=== PATIENT | male | born 1995 | race Caucasian/White ===

== ENCOUNTER 2016-08-21 13:55 | Emergency (ER) | payer MEDICAID, OTHER ==
[~2016-08-21] VITALS: Ht 170.2 cm; Wt 59.1 kg
[2016-08-21] MEDS ORDERED: SODIUM CHLORIDE 0.9% 1,000ML IVBOLUS ONE (14:00)
[2016-08-21] MEDS ORDERED: ONDANSETRON 2MG/ML, 2ML IVPush ONE (14:00)
[2016-08-21] MEDS ORDERED: FAMOTIDINE 20 MG/2 ML IVP ONE (14:00)
[2016-08-21] MEDS ORDERED: SODIUM CHLORIDE FLUSH 10ML SYR IVF ONE (14:00)
[2016-08-21] MEDS ORDERED: anxiety med PO (14:08)
[2016-08-21 14:35] LABS: ASPARTATE AMINO TRANSFERASE 15 U/L (15-37); BLOOD UREA NITROGEN 11 mg/dL (7-18)
[2016-08-21] MEDS ORDERED: FAMOTIDINE 20 MG/2 ML ONE (14:54)
[2016-08-21] MEDS ORDERED: ONDANSETRON 2MG/ML, 2ML ONE (14:54)
[2016-08-21] MEDS ORDERED: MORPHINE SULFATE 4 MG/ML, 1ML IVPush PRN (16:00)
[2016-08-21] MEDS ORDERED: MORPHINE SULFATE 4 MG/ML, 1ML ONE (16:07)
[2016-08-21] MEDS ORDERED: OMNIPAQUE 350 MG/ML, 100ML BOTTLE ONE (16:08)
[2016-08-21 17:24] VITALS: BP 97/59
== END 2016-08-21 17:27 | disposition home or self-care (01) ==
LOC: ED 16:50
DX: R11.2 Nausea with vomiting, unspecified (principal); R19.7 Diarrhea, unspecified
CPT/HCPCS: 36415; 74020; 74177; 80053; 83690; 85025; 96361; 96374; 96375; 99285; J2405; J7030; Q9967; S0028

== ENCOUNTER 2016-08-29 01:59 | Emergency (ER) | payer MEDICAID ==
[~2016-08-29] VITALS: Ht 162.6 cm; Wt 58.8 kg
[~2016-08-29 01:59] MED LIST: anxiety med PO
[2016-08-29] MEDS ORDERED: KETOROLAC 30 MG/1 ML IM ONE (03:00)
[2016-08-29 03:16] VITALS: BP 96/54
== END 2016-08-29 03:19 | disposition home or self-care (01) ==
LOC: ED 02:49
DX: R07.89 Other chest pain (principal); F41.1 Generalized anxiety disorder
CPT/HCPCS: 71010; 93005; 99284

== ENCOUNTER 2016-09-05 13:28 | Emergency (ER) | payer MEDICAID ==
[~2016-09-05] VITALS: Ht 170.2 cm; Wt 64.3 kg
[2016-09-05] MEDS ORDERED: ONDANSETRON 2MG/ML, 2ML ONE (14:13)
[2016-09-05] MEDS ORDERED: KETOROLAC 30 MG/1 ML ONE (14:13)
[2016-09-05] MEDS ORDERED: FAMOTIDINE 20 MG/2 ML ONE (14:13)
[2016-09-05] MEDS ORDERED: KETOROLAC 30 MG/1 ML IVPush ONE (14:30)
[2016-09-05] MEDS ORDERED: SODIUM CHLORIDE 0.9% 1,000ML IVBOLUS ONE (14:30)
[2016-09-05] MEDS ORDERED: ONDANSETRON 2MG/ML, 2ML IVPush ONE (14:30)
[2016-09-05] MEDS ORDERED: SODIUM CHLORIDE FLUSH 10ML SYR IVF ONE (14:30)
[2016-09-05] MEDS ORDERED: FAMOTIDINE 20 MG/2 ML IVP ONE (14:30)
[2016-09-05 14:49] LABS: PATH.CAST-FLAG NOT PRESENT; SPERM-FLAG NOT PRESENT; SRC-FLAG NOT PRESENT; XTAL-FLAG NOT PRESENT; YLC-FLAG NOT PRESENT
[2016-09-05 14:55] LABS: ASPARTATE AMINO TRANSFERASE 18 U/L (15-37); BLOOD UREA NITROGEN 8 mg/dL (7-18)
[2016-09-05 15:58] VITALS: BP 101/66
== END 2016-09-05 15:59 | disposition home or self-care (01) ==
LOC: ED 15:50
DX: K29.00 Acute gastritis without bleeding (principal)
CPT/HCPCS: 36415; 80053; 81001; 83690; 85025; 96361; 96374; 96375; 99284; J1885; J2405; J7030; S0028

== ENCOUNTER 2016-09-07 11:34 | Inpatient (IN) | payer MEDICAID ==
[~2016-09-07] VITALS: Ht 170.2 cm; Wt 62.5 kg
[2016-09-07] MEDS ORDERED: SODIUM CHLORIDE 0.9% 1,000 ML IV ONE (11:53)
[2016-09-07] MEDS ORDERED: ONDANSETRON 2MG/ML, 2ML IVPush ONE (12:00)
[2016-09-07] MEDS ORDERED: ACETAMINOPHEN 500 MG TABLET PO ONE (12:00)
[2016-09-07] MEDS ORDERED: SODIUM CHLORIDE 0.9% 1,000ML IVBOLUS ONE ×2 (12:00→14:30)
[2016-09-07] MEDS ORDERED: SODIUM CHLORIDE FLUSH 10ML SYR IVF ONE (12:00)
[2016-09-07] MEDS ORDERED: ONDANSETRON 2MG/ML, 2ML ONE (12:08)
[2016-09-07] MEDS ORDERED: HYDROmorphone 1 MG/ML, 1ML ONE ×3 (12:09→18:14)
[2016-09-07] MEDS: HYDROmorphone 1 MG/ML, 1ML IVPush PRN ×2 (12:15→14:48)
[2016-09-07 12:27] LABS: BLOOD UREA NITROGEN 10 mg/dL (7-18)
[2016-09-07] MEDS ORDERED: ACETAMINOPHEN 325 MG TABLET ONE (12:27)
[2016-09-07] MEDS ORDERED: HYDROmorphone 1 MG/ML, 1ML IVPush PRN (15:00)
[2016-09-07 15:48] LABS: GLUCOSE, CSF 58 mg/dL (40-80)
[2016-09-07] MEDS ORDERED: BISACODYL 10 MG SUPP PR PRN (19:00)
[2016-09-07] MEDS ORDERED: LABETALOL 5MG/ML 40ML VIAL IVPush PRN (19:00)
[2016-09-07] MEDS ORDERED: DOCUSATE 100 MG CAPSULE PO PRN (19:00)
[2016-09-07] MEDS ORDERED: SODIUM CHLORIDE FLUSH 10ML SYR IVF PRN (19:00)
[2016-09-07] MEDS ORDERED: morphine SULFATE 10 MG/ML, 1ML IVPush PRN (19:00)
[2016-09-07] MEDS ORDERED: LORazepam 2 MG/ML, 1ML IVPush PRN (19:00)
[2016-09-07] MEDS ORDERED: POLYETHYLENE GLYCOL 17 GM PACKET PO PRN (19:00)
[2016-09-07] MEDS ORDERED: ENOXAPARIN 40 MG/0.4 ML ONE (20:49)
[2016-09-07] MEDS: SODIUM CHLORIDE 0.9% 1,000 ML IV SCH (20:58)
[2016-09-07] MEDS: ENOXAPARIN 40 MG/0.4 ML SQ SCH (20:59)
[2016-09-07] MEDS: ACETAMINOPHEN 325 MG TABLET PO PRN (23:38)
[2016-09-07 23:42] VITALS: BP 121/75
[2016-09-08 01:44] VITALS: BP 91/48
[2016-09-08] MEDS: SODIUM CHLORIDE 0.9% 1,000 ML IV SCH ×6 (01:44→21:58)
[2016-09-08 02:20] LABS: RAPID INFLUENZA A Negative (Negative); RAPID INFLUENZA B Negative (Negative)
[2016-09-08 06:31] LABS: ASPARTATE AMINO TRANSFERASE 15 U/L (15-37); BLOOD UREA NITROGEN 9 mg/dL (7-18)
[2016-09-08 08:50] VITALS: BP 104/63
[2016-09-08] MEDS: ACETAMINOPHEN 325 MG TABLET PO PRN (09:10)
[2016-09-08] MEDS: KETOROLAC 30 MG/1 ML IVPush PRN (09:10)
[2016-09-08 15:31] VITALS: BP 100/63
[2016-09-08 19:49] VITALS: BP 104/68
[2016-09-08] MEDS: ENOXAPARIN 40 MG/0.4 ML SQ SCH (19:56)
[2016-09-09] MEDS: ACETAMINOPHEN 325 MG TABLET PO PRN (02:01)
[2016-09-09] MEDS: SODIUM CHLORIDE 0.9% 1,000 ML IV SCH ×4 (02:42→23:06)
[2016-09-09 03:37] VITALS: BP 100/62
[2016-09-09 06:05] LABS: BLOOD UREA NITROGEN 8 mg/dL (7-18)
[2016-09-09 07:55] VITALS: BP 110/68
[2016-09-09] MEDS ORDERED: maalox/diphenh/lido/sucralfate 5 ML PO PRN (11:00)
[2016-09-09] MEDS: PHENOL THROAT SPRAY BOTTLE MM PRN (12:23)
[2016-09-09] MEDS: PENICILLIN VK 500MG TABLET PO SCH ×2 (12:23→23:04)
[2016-09-09 13:56] VITALS: BP 112/70
[2016-09-09] MEDS: ONDANSETRON 2MG/ML, 2ML IVPush PRN ×2 (14:38→20:30)
[2016-09-09] MEDS: KETOROLAC 30 MG/1 ML IVPush PRN (14:39)
[2016-09-09] MEDS: MORPHINE SULFATE 4 MG/ML, 1ML IVPush PRN ×2 (15:28→20:30)
[2016-09-09] MEDS: HYDROcodone/APAP 5/325 TABLET PO PRN ×2 (17:52→23:04)
[2016-09-09 20:04] VITALS: BP 103/50
[2016-09-09] MEDS: ENOXAPARIN 40 MG/0.4 ML SQ SCH (23:04)
[2016-09-10] MEDS: ONDANSETRON 2MG/ML, 2ML IVPush PRN ×3 (02:55→17:08)
[2016-09-10] MEDS: KETOROLAC 30 MG/1 ML IVPush PRN ×3 (02:55→17:03)
[2016-09-10 03:05] VITALS: BP 101/51
[2016-09-10 05:01] LABS: BLOOD UREA NITROGEN 7 mg/dL (7-18)
[2016-09-10 06:56] VITALS: BP 168/72
[2016-09-10] MEDS: MORPHINE SULFATE 4 MG/ML, 1ML IVPush PRN ×2 (09:06→17:03)
[2016-09-10] MEDS: PENICILLIN VK 500MG TABLET PO SCH (09:06)
[2016-09-10] MEDS: DEXAMETHASONE 4 MG/ML, 1ML IVPush SCH ×3 (10:30→22:38)
[2016-09-10] MEDS ORDERED: PROCHLORPERAZINE 5 MG/ML, 2ML IVPush ONE (10:30)
[2016-09-10] MEDS ORDERED: DEXAMETHASONE 10 MG in SODIUM CHLORIDE 0.9% 50 ML IV ONE (10:30)
[2016-09-10] MEDS ORDERED: DEXAMETHASONE 4 MG/ML, 5ML IVPush ONE (10:30)
[2016-09-10] MEDS ORDERED: DIPHENHYDRAMINE 50 MG/ML, 1ML IVPush ONE (12:00)
[2016-09-10] MEDS: AMPICILLIN/SULBACTAM 3 GM in SODIUM CHLORIDE 0.9% 100 ML IV SCH ×2 (13:23→20:20)
[2016-09-10 14:46] VITALS: BP 94/62
[2016-09-10] MEDS: ENOXAPARIN 40 MG/0.4 ML SQ SCH (20:20)
[2016-09-10 21:05] VITALS: BP 116/77
[2016-09-10] MEDS: SODIUM CHLORIDE 0.9% 1,000 ML IV SCH (22:38)
[2016-09-11] MEDS: MORPHINE SULFATE 4 MG/ML, 1ML IVPush PRN (00:33)
[2016-09-11] MEDS: AMPICILLIN/SULBACTAM 3 GM in SODIUM CHLORIDE 0.9% 100 ML IV SCH ×4 (01:38→20:02)
[2016-09-11 01:54] VITALS: BP 116/61
[2016-09-11] MEDS: DEXAMETHASONE 4 MG/ML, 1ML IVPush SCH ×4 (05:06→23:58)
[2016-09-11 07:23] VITALS: BP 97/59
[2016-09-11 12:41] VITALS: BP 103/56
[2016-09-11 18:52] VITALS: BP 105/60
[2016-09-11] MEDS: SODIUM CHLORIDE 0.9% 1,000 ML IV SCH (20:02)
[2016-09-11] MEDS: ENOXAPARIN 40 MG/0.4 ML SQ SCH (20:02)
[2016-09-12] MEDS: AMPICILLIN/SULBACTAM 3 GM in SODIUM CHLORIDE 0.9% 100 ML IV SCH ×2 (02:02→08:02)
[2016-09-12 04:00] VITALS: BP 105/60
[2016-09-12] MEDS: DEXAMETHASONE 4 MG/ML, 1ML IVPush SCH ×2 (04:42→10:30)
[2016-09-12 05:53] LABS: BLOOD UREA NITROGEN 11 mg/dL (7-18)
[2016-09-12] MEDS: SODIUM CHLORIDE 0.9% 1,000 ML IV SCH (06:05)
[2016-09-12 07:42] VITALS: BP 106/59
[2016-09-12] MEDS: PHENOL THROAT SPRAY BOTTLE MM PRN (08:02)
[2016-09-12] MEDS ORDERED: PHEN177S5 MM (09:40)
[2016-09-12] MEDS ORDERED: ACET325T14 PO (09:40)
[2016-09-12] MEDS ORDERED: AMOX1TAB64 PO (09:40)
[2016-09-12] MEDS ORDERED: METH4TAB2 PO (09:40)
== END 2016-09-12 11:49 | disposition home or self-care (01) | DRG 76 ==
LOC: ED 14:32 → EDIP 18:58 → 3NE 22:03
PROVIDERS: ADMIT Internal Medicine; ATTEND Internal Medicine
PROC: 009U3ZX Drainage of Spinal Canal, Percutaneous Approach, Diagnostic (ICD-10-PCS; principal; 2016-09-07)
DX: A87.9 Viral meningitis, unspecified (principal); J02.0 Streptococcal pharyngitis; F41.9 Anxiety disorder, unspecified; I95.9 Hypotension, unspecified; Z88.8 Allergy status to other drugs, medicaments and biological substances; Z87.891 Personal history of nicotine dependence
CPT/HCPCS: 36415; 62270; 70450; 71020; 80048; 80053; 81003; 82040; 82945; 83605; 84157; 84443; 85025; 86308; 87040; 87070; 87081; 87147; 87205; 87252; 87400; 87880; 89051; 96361; 96374; 96375; 96376; J0295; J1100; J1170; J1650; J1885; J2405; J0780; J1200; J2270; J7030

== ENCOUNTER 2016-10-18 21:55 | Emergency (ER) | payer MEDICAID, OTHER ==
[~2016-10-18] VITALS: Ht 170.2 cm; Wt 64.0 kg
[~2016-10-18 21:55] MED LIST changes: +ACET325T14 PO; +AMOX1TAB64 PO; +METH4TAB2 PO; +PHEN177S5 MM
[2016-10-18 21:58] VITALS: BP 102/53
[2016-10-18] MEDS ORDERED: LORazepam 1MG TABLET ONE (22:18)
[2016-10-18] MEDS ORDERED: LORazepam 1MG TABLET PO ONE (22:30)
== END 2016-10-18 22:45 | disposition home or self-care (01) ==
LOC: ED 22:18
DX: R07.89 Other chest pain (principal); F41.1 Generalized anxiety disorder; Z87.891 Personal history of nicotine dependence
CPT/HCPCS: 71020; 93005; 99284

== ENCOUNTER 2016-10-31 21:34 | Emergency (ER) | payer MEDICAID ==
[~2016-10-31] VITALS: Ht 170.2 cm; Wt 65.2 kg
[2016-10-31 21:35] VITALS: BP 114/74
[2016-10-31] MEDS ORDERED: LIDOCAINE 1%, 20ML ONE (21:55)
== END 2016-10-31 23:32 | disposition home or self-care (01) ==
LOC: ED 22:40
DX: L02.411 Cutaneous abscess of right axilla (principal); J02.8 Acute pharyngitis due to other specified organisms
CPT/HCPCS: 87081; 87147; 87880; 99284

== ENCOUNTER 2016-11-03 00:29 | Emergency (ER) | payer OTHER, MEDICAID ==
[~2016-11-03] VITALS: Ht 170.2 cm; Wt 67.4 kg
[2016-11-03 00:32] VITALS: BP 122/79
[2016-11-03] MEDS ORDERED: LIDOCAINE 2%, 20ML SQ ONE (01:30)
[2016-11-03] MEDS ORDERED: LIDOCAINE 1%, 20ML ONE (01:32)
[2016-11-03] MEDS ORDERED: IBUPROFEN 200 MG TABLET ONE (02:11)
[2016-11-03] MEDS ORDERED: IBUPROFEN 200 MG TABLET PO ONE (02:30)
== END 2016-11-03 02:28 | disposition home or self-care (01) ==
LOC: ED 02:00
DX: L02.411 Cutaneous abscess of right axilla (principal); I95.9 Hypotension, unspecified
CPT/HCPCS: 10060

== ENCOUNTER 2016-11-05 19:04 | Emergency (ER) | payer MEDICAID, OTHER ==
[~2016-11-05] VITALS: Ht 170.2 cm; Wt 66.6 kg
[2016-11-05 19:11] VITALS: BP 117/73
== END 2016-11-05 20:27 | disposition home or self-care (01) ==
LOC: ED 20:20
DX: L02.411 Cutaneous abscess of right axilla (principal); F41.9 Anxiety disorder, unspecified; F32.9 Major depressive disorder, single episode, unspecified; Z88.8 Allergy status to other drugs, medicaments and biological substances
CPT/HCPCS: 99283

== ENCOUNTER 2016-11-16 13:56 | Emergency (ER) | payer OTHER, MEDICAID ==
[~2016-11-16] VITALS: Ht 170.2 cm; Wt 63.0 kg
[2016-11-16 14:03] VITALS: BP 118/67
== END 2016-11-16 15:05 | disposition home or self-care (01) ==
LOC: ED 14:29
DX: R53.1 Weakness (principal); Z00.00 Encounter for general adult medical examination without abnormal findings; I95.9 Hypotension, unspecified
CPT/HCPCS: 36415; 80047; 99283

== ENCOUNTER 2018-02-26 14:52 | Emergency (ER) | payer OTHER, MEDICAID ==
[~2018-02-26] VITALS: Ht 172.7 cm; Wt 74.0 kg
[2018-02-26 14:58] VITALS: BP 101/64
--- NOTE | 2018-02-26 15:50 | NUR ---
pt resting in bed. friend at side. urinal provided and informed of the need for ua
[2018-02-26 15:54] LABS: BASOPHILS # (AUTO) 0.03 x10^3/uL (0-0.1); BASOPHILS % (AUTO) 1 % (0-1); EOSINOPHILS # (AUTO) 0.16 x10^3/uL (0-0.4); EOSINOPHILS % (AUTO) 3 % (1-7); LYMPHOCYTES # (AUTO) 1.55 x10^3/uL (1-3.4); LYMPHOCYTES % (AUTO) 27 % (22-44); MD NO; MEAN CORPUSCULAR HEMOGLOBIN 29.1 pg (27.5-34.5); MEAN CORPUSCULAR HGB CONC 33.6 g/dL (33.2-36.2); MEAN CORPUSCULAR VOLUME 86.4 fL (81-97); MEAN PLATELET VOLUME 8.9 fL (7.4-10.4); MONOCYTES # (AUTO) 0.52 x10^3/uL (0.2-0.8); MONOCYTES % (AUTO) 9 % (2-9); NEUTROPHILS # (AUTO) 3.49 x10^3/uL (1.8-6.8); NEUTROPHILS % (AUTO) 61 % (42-75); PLATELET COUNT 204 x10^3/uL (130-400); RED BLOOD COUNT 5.28 x10^6/uL (4.38-5.82); RED CELL DISTRIBUTION WIDTH 13.6 % (9.4-14.8)
[2018-02-26] MEDS ORDERED: KETOROLAC 30 MG/1 ML ONE (15:54)
[2018-02-26] MEDS ORDERED: ONDANSETRON ODT 4 MG ONE (15:54)
[2018-02-26] MEDS ORDERED: KETOROLAC 30 MG/1 ML IM ONE (16:00)
[2018-02-26] MEDS ORDERED: ONDANSETRON ODT 4 MG PO ONE (16:00)
[2018-02-26 16:07] LABS: ALANINE AMINOTRANSFERASE 21 U/L (12-78); ALBUMIN 3.6 g/dL (3.4-5.0); ANION GAP 3 mmol/L (5-15); CALCIUM 8.5 mg/dL (8.5-10.1); CHLORIDE 112 mmol/L (98-107); CREATININE 0.94 mg/dL (0.7-1.3)
[2018-02-26 16:09] LABS: ALKALINE PHOSPHATASE 101 U/L (45-117); BILIRUBIN,TOTAL 0.4 mg/dL (0.2-1.0); TOTAL PROTEIN 6.8 g/dL (6.4-8.2)
[2018-02-26] MEDS ORDERED: DEXAMETHASONE 4 MG TABLET ONE (16:59)
[2018-02-26] MEDS ORDERED: DEXAMETHASONE 4 MG TABLET PO ONE (17:00)
[2018-02-26 17:07] LABS: MICROSCOPIC NOT IND
[2018-02-26 17:09] LABS: CULTURE INDICATED? NO
--- NOTE | 2018-02-26 17:29 | NUR ---
SPOKE WITH MICRO JUST RECIEVED MONO SCREEN NOW. AWAITING RESULTS AT THIS TIME
== END 2018-02-26 17:59 | disposition home or self-care (01) ==
LOC: ED 16:59
DX: J02.8 Acute pharyngitis due to other specified organisms (principal); B97.89 Other viral agents as the cause of diseases classified elsewhere; F41.1 Generalized anxiety disorder; F32.9 Major depressive disorder, single episode, unspecified
CPT/HCPCS: 36415; 80053; 81003; 83690; 85025; 86308; 87081; 87880; 96372; 99283; J1885; Q0162

== ENCOUNTER 2018-06-09 04:41 | Emergency (ER) | payer OTHER, MEDICAID ==
[~2018-06-09] VITALS: Ht 172.7 cm; Wt 72.4 kg
[2018-06-09] MEDS ORDERED: FAMOTIDINE 20 MG/2 ML IVP ONE (05:00)
[2018-06-09] MEDS ORDERED: MORPHINE SULFATE 4 MG/ML, 1ML IVPush PRN (05:00)
[2018-06-09] MEDS ORDERED: MAALOX/HYOSCYAMINE/LIDOCAINE 45 ML BTL PO ONE (05:00)
[2018-06-09] MEDS ORDERED: SODIUM CHLORIDE 0.9% 1,000ML IVBOLUS ONE (05:00)
[2018-06-09] MEDS ORDERED: MAALOX/HYOSCYAMINE/LIDOCAINE 45 ML BTL ONE (05:14)
[2018-06-09] MEDS ORDERED: MORPHINE SULFATE 4 MG/ML, 1ML ONE (05:14)
[2018-06-09] MEDS ORDERED: FAMOTIDINE 20 MG/2 ML ONE (05:14)
--- NOTE | 2018-06-09 05:16 | NUR ---
PT TAKEN TO CT VIA [facility].
[2018-06-09 05:41] LABS: BASOPHILS # (AUTO) 0.02 x10^3/uL (0-0.1); BASOPHILS % (AUTO) 0 % (0-1); EOSINOPHILS # (AUTO) 0.06 x10^3/uL (0-0.4); EOSINOPHILS % (AUTO) 1 % (1-7); LYMPHOCYTES # (AUTO) 0.62 x10^3/uL (1-3.4); LYMPHOCYTES % (AUTO) 7 % (22-44); MD NO; MEAN CORPUSCULAR HEMOGLOBIN 29.6 pg (27.5-34.5); MEAN CORPUSCULAR HGB CONC 34.7 g/dL (33.2-36.2); MEAN CORPUSCULAR VOLUME 85.1 fL (81-97); MEAN PLATELET VOLUME 8.9 fL (7.4-10.4); MONOCYTES # (AUTO) 0.17 x10^3/uL (0.2-0.8); MONOCYTES % (AUTO) 2 % (2-9); NEUTROPHILS # (AUTO) 7.98 x10^3/uL (1.8-6.8); NEUTROPHILS % (AUTO) 90 % (42-75); PLATELET COUNT 202 x10^3/uL (130-400); RED BLOOD COUNT 5.73 x10^6/uL (4.38-5.82); RED CELL DISTRIBUTION WIDTH 13.8 % (9.4-14.8)
--- NOTE | 2018-06-09 05:47 | NUR ---
PT IN [facility]. VSS AT THIS TIME. PT MEDICATED PER MAR. FRIEND AT BS. PT EDUCATED ON ER PROCESS AND POC AND VERBALIZES UNDERSTANDING. CALL LIGHT IS WITHIN REACH.
[2018-06-09 05:53] LABS: ALANINE AMINOTRANSFERASE 22 U/L (12-78); ALBUMIN 4.1 g/dL (3.4-5.0); ANION GAP 8 mmol/L (5-15); CALCIUM 8.7 mg/dL (8.5-10.1); CHLORIDE 110 mmol/L (98-107); CREATININE 0.97 mg/dL (0.7-1.3)
[2018-06-09 05:57] LABS: ALKALINE PHOSPHATASE 91 U/L (45-117); BILIRUBIN,TOTAL 1.1 mg/dL (0.2-1.0)
--- NOTE | 2018-06-09 06:50 | NUR ---
BS REPORT OF PT GIVEN TO CASTRO HOLDER. ALL QUESTIONS ANSWERED.
--- NOTE | 2018-06-09 06:53 | NUR ---
RECEIVED BEDSIDE REPORT FROM CASTRO BUTLER.
--- NOTE | 2018-06-09 07:00 | NUR ---
.PT RESTING ON [employer] PLAYING ON CELL PHONE. NO ACUTE DISTRESS NOTED. FRIEND BEDSIDE. AWAITING RESULTS.
--- NOTE | 2018-06-09 07:34 | NUR ---
PT EDUCATED REGARDING POC AND NPO. PT VERBALIZED UNDERSTANDING. PT LAYING ON [employer] PLAYING GAMES ON CELL PHONE. BROTHER LEFT. PT AWARE TO CALL BROTHER. NO ACUTE DISTRESS NOTED. NO NEEDS REQUESTED AT THIS TIME.
--- NOTE | 2018-06-09 07:50 | NUR ---
SPOKE WITH LATASHA AT [facility]. SHE IS VERIFING THAT PT HAS CURRENT [facility].
--- NOTE | 2018-06-09 07:57 | NUR ---
SPOKE WITH LATASHA AT [facility]. PT DOES HAVE [facility]. LATASHA NOW CHECKING FOR BEDS
--- NOTE | 2018-06-09 08:27 | NUR ---
pt updated on plan to transfer, vss, cont to report abd pain
--- NOTE | 2018-06-09 08:55 | NUR ---
REPORT CALLED TO CASTRO MARIEE AT [facility]. ALL QUESTIONS ANSWERED.
[2018-06-09 09:00] VITALS: BP 107/63
--- NOTE | 2018-06-09 09:00 | NUR ---
PT LAYING ON [employer]. PT WAS ASKED TO CALL HIS BROTHER.
--- NOTE | 2018-06-09 10:11 | NUR ---
[facility] PT TRAN[facility]ORTED VIA [facility]. PT LEFT WITH ALL PERSONAL BELONGINGS. AXEL HAS PT'S CELL PHONE.
== END 2018-06-09 10:14 | disposition short-term general hospital (02) ==
LOC: ED 05:53
DX: K52.9 Noninfective gastroenteritis and colitis, unspecified (principal); K56.0 Paralytic ileus
CPT/HCPCS: 36415; 74021; 74176; 80053; 83690; 85025; 96361; 96374; 96375; 99285; J3490; J7030

== ENCOUNTER 2018-09-01 09:21 | Emergency (ER) | payer OTHER, MEDICAID ==
[~2018-09-01] VITALS: Ht 170.2 cm; Wt 72.0 kg
--- NOTE | 2018-09-01 09:32 | NUR ---
PT TO ROOM AT THIS TIME
--- NOTE | 2018-09-01 09:35 | NUR ---
23 Y/O MALE PRESENTS TO ED WITH C/O "ABOUT TWO DAYS AGO I HAD A SORE THROAT. I THOUGHT TONISLITIS. IT GOT BETTER. THEN LAST NIGHT I GOT REALLY NAUSEOUS AND SICK FEELING. IT GOT WORSE THIS MORNING. I FEEL TIRED AND REALLY NAUSEOUS. I HAVE A MASSIVE SANCHEZ THAT DOESNT GO AWAY." NO C/O D, TRAUMA, SYNCOPE, CP, SOB. EDMD BEDSIDE. GIRLFRIEND BEDSIDE. PT PLACED ON CONT PULSE OX,NIBP.
--- NOTE | 2018-09-01 09:55 | NUR ---
PIV ESTABLISHED. PT TOLERATED WITH NO COMPLICATIONS. BLOOD OBTAINED. GIRLFRIEND BEDSIDE.
[2018-09-01] MEDS ORDERED: DEXAMETHASONE 4 MG TABLET ONE (09:57)
[2018-09-01] MEDS ORDERED: KETOROLAC 30 MG/1 ML ONE (09:58)
[2018-09-01] MEDS ORDERED: DEXAMETHASONE 4 MG TABLET PO ONE (10:00)
[2018-09-01] MEDS ORDERED: KETOROLAC 30 MG/1 ML IVPush ONE (10:00)
[2018-09-01 10:09] LABS: MEAN CORPUSCULAR HEMOGLOBIN 29.7 pg (27.5-34.5); MEAN CORPUSCULAR HGB CONC 33.3 g/dL (33.2-36.2); MEAN CORPUSCULAR VOLUME 89.2 fL (81-97); MEAN PLATELET VOLUME 9.3 fL (7.4-10.4); PLATELET COUNT 156 x10^3/uL (130-400); RED BLOOD COUNT 4.96 x10^6/uL (4.38-5.82); RED CELL DISTRIBUTION WIDTH 13.8 % (9.4-14.8)
--- NOTE | 2018-09-01 10:11 | NUR ---
MEDICATIONS ADMINISTERED PER EMAR. PT HAD NO DIFFICULTIES WITH SWALLOWING PO MEDICATIONS.
[2018-09-01 10:14] LABS: ALBUMIN 3.6 g/dL (3.4-5.0); ANION GAP 9 mmol/L (5-15); CHLORIDE 113 mmol/L (98-107); CREATININE 1.04 mg/dL (0.7-1.3)
[2018-09-01 10:26] LABS: MD YES
[2018-09-01 10:28] LABS: BAND#(MANUAL) 2.02 x10^3/uL; BANDS%(MANUAL) 16 % (0-7); LYMPH#(MANUAL) 1.64 x10^3/uL (1-3.4); LYMPHS% (MANUAL) 13 % (22-44); MONOS#(MANUAL) 0.88 x10^3/uL (0.3-2.7); MONOS% (MANUAL) 7 % (2-9); SEG#(MANUAL) 8.06 x10^3/uL (1.8-6.8); SEGS% (MANUAL) 64 % (42-75)
[2018-09-01 10:29] LABS: <PLATELET ESTIMATE> ADEQUATE; <PLT MORPHOLOGY> NORMAL PLT MORPH; ANISOCYTOSIS 1+
[2018-09-01] MEDS ORDERED: POTASSIUM CHLORIDE 20 MEQ TAB.ER.PRT ONE (10:58)
[2018-09-01] MEDS ORDERED: POTASSIUM CHLORIDE 20 MEQ TAB.ER.PRT PO ONE (11:00)
--- NOTE | 2018-09-01 11:01 | NUR ---
PT RESTING ON GURNEY. GF BEDSIDE NO NEEDS REQUESTED AT THIS TIME. MEDICATION ADMINISTERED PER EMAR. VSS
--- NOTE | 2018-09-01 11:02 | NUR ---
PT STATES HE DIDN'T SLEEP MUCH LAST NIGHT. PER GF, "HE ONLY SLEPT A FEW HOURS AT THIS MOST."
[2018-09-01] MEDS ORDERED: SODIUM CHLORIDE 0.9% 1,000ML IVBOLUS ONE (11:30)
--- NOTE | 2018-09-01 11:37 | NUR ---
PT STATES "MY THROAT FEELS BETTER AFTER THOSE MEDICATIONS. IT'S LIKE A 2 NOW."
[2018-09-01 12:11] VITALS: BP 93/42
== END 2018-09-01 12:13 | disposition home or self-care (01) ==
LOC: ED 09:54
DX: J02.0 Streptococcal pharyngitis (principal); E87.6 Hypokalemia; F17.200 Nicotine dependence, unspecified, uncomplicated; I95.9 Hypotension, unspecified; R42 Dizziness and giddiness
CPT/HCPCS: 36415; 71045; 80048; 82040; 85025; 86308; 87040; 87081; 87147; 87880; 96361; 96374; 99284; J1885; J7030

== ENCOUNTER 2018-09-11 15:28 | Emergency (ER) | payer OTHER, MEDICAID ==
[~2018-09-11] VITALS: Ht 172.7 cm; Wt 70.0 kg
[2018-09-11 15:30] VITALS: BP 102/68
[2018-09-11] MEDS ORDERED: DEXAMETHASONE 4 MG TABLET ONE (15:51)
[2018-09-11] MEDS ORDERED: DEXAMETHASONE 4 MG TABLET PO ONE (16:00)
== END 2018-09-11 16:45 | disposition home or self-care (01) ==
LOC: ED 15:45
DX: J02.0 Streptococcal pharyngitis (principal); F41.1 Generalized anxiety disorder; H92.02 Otalgia, left ear; F32.9 Major depressive disorder, single episode, unspecified; F17.200 Nicotine dependence, unspecified, uncomplicated
CPT/HCPCS: 99283

== ENCOUNTER 2019-01-12 00:07 | Emergency (ER) | payer MEDICAID, OTHER ==
[~2019-01-12] VITALS: Ht 170.2 cm; Wt 63.6 kg
[~2019-01-12 00:07] MED LIST changes: -PHEN177S5 MM; +[UNRECOGNIZED DRUG - CODE] MM
[2019-01-12] MEDS ORDERED: DIPHENHYDRAMINE 50 MG/ML, 1ML IVPush ONE (00:30)
[2019-01-12] MEDS ORDERED: METOCLOPRAMIDE 5 MG/ML, 2ML IVPush ONE (00:30)
[2019-01-12] MEDS ORDERED: SODIUM CHLORIDE FLUSH 10ML SYR IVF ONE (00:30)
[2019-01-12] MEDS ORDERED: SODIUM CHLORIDE 0.9% 1,000ML IVBOLUS ONE (00:30)
[2019-01-12] MEDS ORDERED: KETOROLAC 30 MG/1 ML IVPush ONE (00:30)
[2019-01-12] MEDS ORDERED: METOCLOPRAMIDE 5 MG/ML, 2ML ONE (00:33)
[2019-01-12] MEDS ORDERED: DIPHENHYDRAMINE 50 MG/ML, 1ML ONE (00:33)
[2019-01-12] MEDS ORDERED: KETOROLAC 30 MG/1 ML ONE (00:33)
--- NOTE | 2019-01-12 00:43 | NUR ---
Patient into room by HAKEEM for headache, and states coughing up blood. Mask on patient, coughing occasionally. Peripheral intravenous catheter (pIV) already placed en route. Patient resting on gurney with signficant other at bedside. Break RN started intravenous fluids (IVF) and administering medications for headache (see eMAR.) Patient attached to monitor, vital signs stable.
[2019-01-12 00:48] LABS: RAPID INFLUENZA A Negative (Negative); RAPID INFLUENZA B Negative (Negative)
--- NOTE | 2019-01-12 00:50 | NUR ---
RN heard patient yelling in pain. RN to bedside, patient yelling as if in excruciating pain over ekg stickers being removed.
[2019-01-12] MEDS ORDERED: DEXAMETHASONE 4 MG/ML, 1ML IVPush ONE (01:30)
[2019-01-12] MEDS ORDERED: DEXAMETHASONE 4 MG/ML, 1ML ONE (01:33)
[2019-01-12 01:48] VITALS: BP 113/64
== END 2019-01-12 01:52 | disposition home or self-care (01) ==
LOC: ED 01:20
DX: J06.9 Acute upper respiratory infection, unspecified (principal); J45.909 Unspecified asthma, uncomplicated; G43.909 Migraine, unspecified, not intractable, without status migrainosus; J02.8 Acute pharyngitis due to other specified organisms; F41.1 Generalized anxiety disorder; F32.9 Major depressive disorder, single episode, unspecified; F17.200 Nicotine dependence, unspecified, uncomplicated
CPT/HCPCS: 71046; 87400; 93005; 96374; 96375; 99284; J1100; J1200; J1885; J2765; J7030

== ENCOUNTER 2019-01-18 22:45 | Emergency (ER) | payer MEDICAID, OTHER ==
[~2019-01-18] VITALS: Ht 180.3 cm; Wt 76.8 kg
--- NOTE | 2019-01-18 22:54 | NUR ---
Pt presents to ed c/o bennett and lbp. States lbp feels like the last time he got spinal tapped and was dx w/ meningitis. States nuchal rigidity as well. Denies fevers at home. Pt states bennett in back of head and 6/10 pain. Gross neuro intact. Perrla. Pt denies any further medical hx. Monitoring applied. Vss. Call light within reach. Spouse at bedside.
[2019-01-18] MEDS ORDERED: IBUPROFEN 800 MG TABLET PO STA (23:43)
[2019-01-18] MEDS ORDERED: DIAZEPAM 5 MG/ML, 2ML IM STA (23:43)
[2019-01-19] MEDS ORDERED: DEXAMETHASONE 4 MG/ML, 5ML ONE
[2019-01-19] MEDS ORDERED: IBUPROFEN 800 MG TABLET ONE
[2019-01-19] MEDS ORDERED: SODIUM CHLORIDE FLUSH 10ML SYR IVF ONE
[2019-01-19] MEDS ORDERED: DIAZEPAM 5 MG/ML, 2ML ONE
[2019-01-19] MEDS ORDERED: DEXAMETHASONE 4 MG/ML, 1ML IVPush ONE
[2019-01-19] MEDS ORDERED: SODIUM CHLORIDE 0.9% 1,000ML IVBOLUS ONE
[2019-01-19 00:21] LABS: RAPID INFLUENZA A Negative (Negative); RAPID INFLUENZA B Negative (Negative)
[2019-01-19 00:36] LABS: BASOPHILS # (AUTO) 0.13 x10^3/uL (0-0.1); BASOPHILS % (AUTO) 1 % (0-1); EOSINOPHILS # (AUTO) 0.13 x10^3/uL (0-0.4); EOSINOPHILS % (AUTO) 1 % (1-7); LYMPHOCYTES # (AUTO) 1.46 x10^3/uL (1-3.4); LYMPHOCYTES % (AUTO) 11 % (22-44); MD NO; MEAN CORPUSCULAR HEMOGLOBIN 29.3 pg (27.5-34.5); MEAN CORPUSCULAR HGB CONC 33.3 g/dL (33.2-36.2); MEAN PLATELET VOLUME 8.7 fL (7.4-10.4); MONOCYTES # (AUTO) 0.58 x10^3/uL (0.2-0.8); MONOCYTES % (AUTO) 4 % (2-9); NEUTROPHILS # (AUTO) 11.01 x10^3/uL (1.8-6.8); NEUTROPHILS % (AUTO) 83 % (42-75); PLATELET COUNT 209 x10^3/uL (130-400); RED BLOOD COUNT 5.03 x10^6/uL (4.38-5.82); RED CELL DISTRIBUTION WIDTH 13.8 % (9.4-14.8)
[2019-01-19 00:46] LABS: ALBUMIN 3.6 g/dL (3.4-5.0); ANION GAP 4 mmol/L (5-15); CALCIUM 8.2 mg/dL (8.5-10.1); CHLORIDE 108 mmol/L (98-107); CREATININE 0.93 mg/dL (0.7-1.3)
[2019-01-19 01:40] VITALS: BP 107/63
== END 2019-01-19 02:09 | disposition home or self-care (01) ==
LOC: ED 23:44
DX: J20.8 Acute bronchitis due to other specified organisms (principal); J02.0 Streptococcal pharyngitis; B34.9 Viral infection, unspecified; F41.1 Generalized anxiety disorder; F32.9 Major depressive disorder, single episode, unspecified; G43.909 Migraine, unspecified, not intractable, without status migrainosus; F17.210 Nicotine dependence, cigarettes, uncomplicated
CPT/HCPCS: 36415; 71045; 80048; 82040; 85025; 86308; 87400; 87880; 93005; 96372; 96374; 99284; J1100; J3360; J7030

== ENCOUNTER 2019-02-08 09:16 | Emergency (ER) | payer OTHER ==
[~2019-02-08] VITALS: Ht 172.7 cm; Wt 68.2 kg
[2019-02-08] MEDS ORDERED: MORPHINE SULFATE 4 MG/ML, 1ML ONE ×2 (09:45→11:17)
[2019-02-08] MEDS ORDERED: ONDANSETRON 2MG/ML, 2ML ONE (09:45)
[2019-02-08] MEDS ORDERED: ACETAMINOPHEN 500 MG TABLET ONE (09:46)
[2019-02-08] MEDS ORDERED: ACETAMINOPHEN 500 MG TABLET PO ONE (10:00)
[2019-02-08] MEDS ORDERED: ONDANSETRON 2MG/ML, 2ML IVPush ONE (10:00)
[2019-02-08] MEDS ORDERED: SODIUM CHLORIDE 0.9% 1,000ML IVBOLUS ONE ×2 (10:00→12:30)
--- NOTE | 2019-02-08 10:00 | NUR ---
PT REPORT FROM CASTRO BRAUN. PT CARE TO BE ASSUMED.
[2019-02-08] MEDS: MORPHINE SULFATE 4 MG/ML, 1ML IVPush PRN ×2 (10:02→11:20)
--- NOTE | 2019-02-08 10:15 | NUR ---
LAB BS FOR ADDITIONAL LAB DRAW. RAINBOW DRAWN FROM IV SITE PER CASTRO BRAUN
[2019-02-08 10:19] LABS: BASOPHILS # (AUTO) 0.01 x10^3/uL (0-0.1); BASOPHILS % (AUTO) 0 % (0-1); EOSINOPHILS # (AUTO) 0.04 x10^3/uL (0-0.4); EOSINOPHILS % (AUTO) 1 % (1-7); LYMPHOCYTES # (AUTO) 0.49 x10^3/uL (1-3.4); LYMPHOCYTES % (AUTO) 9 % (22-44); MD NO; MEAN CORPUSCULAR HEMOGLOBIN 29.4 pg (27.5-34.5); MEAN CORPUSCULAR HGB CONC 33.4 g/dL (33.2-36.2); MEAN CORPUSCULAR VOLUME 87.9 fL (81-97); MEAN PLATELET VOLUME 9.1 fL (7.4-10.4); MONOCYTES # (AUTO) 0.36 x10^3/uL (0.2-0.8); MONOCYTES % (AUTO) 7 % (2-9); NEUTROPHILS # (AUTO) 4.33 x10^3/uL (1.8-6.8); NEUTROPHILS % (AUTO) 83 % (42-75); PLATELET COUNT 182 x10^3/uL (130-400); RED BLOOD COUNT 5.45 x10^6/uL (4.38-5.82); RED CELL DISTRIBUTION WIDTH 13.9 % (9.4-14.8)
[2019-02-08 10:32] LABS: RAPID INFLUENZA A Negative (Negative); RAPID INFLUENZA B Negative (Negative)
[2019-02-08 10:34] LABS: ALBUMIN 3.9 g/dL (3.4-5.0); ANION GAP 7 mmol/L (5-15); CALCIUM 8.8 mg/dL (8.5-10.1); CHLORIDE 108 mmol/L (98-107)
[2019-02-08 10:38] LABS: ALANINE AMINOTRANSFERASE 28 U/L (12-78); ALKALINE PHOSPHATASE 101 U/L (45-117); BILIRUBIN,TOTAL 0.6 mg/dL (0.2-1.0); CREATININE 0.97 mg/dL (0.7-1.3); TOTAL PROTEIN 7.5 g/dL (6.4-8.2)
--- NOTE | 2019-02-08 11:45 | NUR ---
NS INFUSED. PT RESTING QUIETLY ON GURNEY, RESP EVEN & UNLABORED, SIDE RAILS UP X2, CALL LIGHT W/IN REACH. DR BLAKE BS TO DISCUSS POC
[2019-02-08] MEDS ORDERED: PROMETHAZINE 25 MG/ML, 1ML IM ONE (12:00)
[2019-02-08] MEDS ORDERED: KETOROLAC 30 MG/1 ML IVPush ONE (12:00)
[2019-02-08] MEDS ORDERED: PROMETHAZINE 25 MG/ML, 1ML ONE (12:20)
[2019-02-08] MEDS ORDERED: KETOROLAC 30 MG/1 ML ONE (12:20)
--- NOTE | 2019-02-08 12:51 | NUR ---
2ND LITER NS SHARAN. TORADOL AND PHENERGAN GIVEN PER EMAR. PT REPORT TO BREAK RN: SANDY.
[2019-02-08 14:15] VITALS: BP 94/50
--- NOTE | 2019-02-08 14:16 | NUR ---
PT GIVEN DC INSTRUCTIONS AND SCRIPT, PT REPORTS SYMPTOMS HAVE IMPROVED S/P MEDS GIVEN. PT IS A&O, RESPS EVEN AND UNLABORED, NADN. PIV DC'D WITH TIP INTACT. PT GIVEN DC INSTRUCTIONS AND SCRIPT, EDUCATED REGARDING RX FOR PHENERGAN AND NAPROSYN. PT EDUCAYTED NOT TO DRIVE D/T MEDS GIVEN. PT AMB TO DC DESK WITH STEADY GAIT, ACCOMPANIED BY SIGNIFICANT OTHER.
== END 2019-02-08 14:17 | disposition home or self-care (01) ==
LOC: ED 10:25
DX: E86.0 Dehydration (principal); B34.9 Viral infection, unspecified; R51 Headache; R50.81 Fever presenting with conditions classified elsewhere
CPT/HCPCS: 36415; 71045; 80053; 83605; 84145; 85025; 87040; 87400; 93005; 96361; 96372; 96374; 96375; 96376; 99284; J1885; J2270; J2405; J2550; J7030

== ENCOUNTER 2019-03-21 23:34 | Emergency (ER) | payer OTHER ==
[~2019-03-21] VITALS: Ht 172.7 cm; Wt 68.4 kg
[2019-03-22] MEDS ORDERED: KETOROLAC 30 MG/1 ML IVPush ONE (00:30)
[2019-03-22] MEDS ORDERED: ONDANSETRON 2MG/ML, 2ML IVPush ONE (00:30)
[2019-03-22] MEDS ORDERED: ONDANSETRON 2MG/ML, 2ML ONE (00:30)
[2019-03-22] MEDS ORDERED: KETOROLAC 30 MG/1 ML ONE (00:30)
[2019-03-22] MEDS ORDERED: SODIUM CHLORIDE 0.9% 1,000ML IVBOLUS ONE (00:30)
[2019-03-22 00:37] LABS: BASOPHILS # (AUTO) 0.08 x10^3/uL (0-0.1); BASOPHILS % (AUTO) 1 % (0-1); EOSINOPHILS # (AUTO) 0.11 x10^3/uL (0-0.4); EOSINOPHILS % (AUTO) 1 % (1-7); LYMPHOCYTES # (AUTO) 2.06 x10^3/uL (1-3.4); LYMPHOCYTES % (AUTO) 24 % (22-44); MD NO; MEAN CORPUSCULAR HGB CONC 33.7 g/dL (33.2-36.2); MEAN CORPUSCULAR VOLUME 86.2 fL (81-97); MEAN PLATELET VOLUME 9.2 fL (7.4-10.4); MONOCYTES % (AUTO) 7 % (2-9); NEUTROPHILS # (AUTO) 5.64 x10^3/uL (1.8-6.8); NEUTROPHILS % (AUTO) 66 % (42-75); PLATELET COUNT 313 x10^3/uL (130-400); RED BLOOD COUNT 5.16 x10^6/uL (4.38-5.82); RED CELL DISTRIBUTION WIDTH 14.4 % (9.4-14.8)
[2019-03-22 00:49] LABS: ALANINE AMINOTRANSFERASE 19 U/L (12-78); ALBUMIN 3.4 g/dL (3.4-5.0); ANION GAP 6 mmol/L (5-15); CALCIUM 8.8 mg/dL (8.5-10.1); CHLORIDE 111 mmol/L (98-107); CREATININE 0.79 mg/dL (0.7-1.3)
[2019-03-22 00:52] LABS: ALKALINE PHOSPHATASE 93 U/L (45-117); BILIRUBIN,TOTAL 0.4 mg/dL (0.2-1.0); TOTAL PROTEIN 7.5 g/dL (6.4-8.2)
[2019-03-22 00:56] LABS: MICROSCOPIC NOT IND
[2019-03-22 00:58] LABS: CULTURE INDICATED? NO
--- NOTE | 2019-03-22 01:13 | NUR ---
BREAK RN: PT. RESTING ON GURNEY WITH EYES CLOSED. EVEN, NON-LABORED RESPIRATIONS VISIBLE. IVF INFUSING. VS UPDATED. PT. CHART UP FOR RECHECK BY SILVESTRE. ALL MONITORS IN PLACE. ALL SAFETY MEASURES OBSERVED.
[2019-03-22 01:37] VITALS: BP 118/75
== END 2019-03-22 02:16 | disposition home or self-care (01) ==
LOC: ED 03-22
DX: A09 Infectious gastroenteritis and colitis, unspecified (principal); J45.909 Unspecified asthma, uncomplicated; F17.200 Nicotine dependence, unspecified, uncomplicated; R11.2 Nausea with vomiting, unspecified
CPT/HCPCS: 36415; 80053; 81003; 83690; 85025; 96361; 96374; 96375; 99284; J1885; J2405; J7030

== ENCOUNTER 2019-04-27 23:45 | Emergency (ER) | payer OTHER ==
[~2019-04-27] VITALS: Ht 172.7 cm; Wt 68.0 kg
--- NOTE | 2019-04-28 | NUR ---
PT TO ED WITH LEFT HIP/ LEFT LOWER QUADRANT PAIN. PT REPORTS POSSIBLE HERNIA DX X1 MONTH AGO. REPORTS INTERMITTENT PAIN. PT ALSO REPORTS NAUSEA, DIZZINESS. PT CONNECTED TO MONITORING, CALL LIGHT WITHIN REACH, ALL SAFETY MEASURES IN PLACE.
[2019-04-28 00:22] LABS: BASOPHILS # (AUTO) 0.05 x10^3/uL (0-0.1); BASOPHILS % (AUTO) 1 % (0-1); EOSINOPHILS # (AUTO) 0.08 x10^3/uL (0-0.4); EOSINOPHILS % (AUTO) 1 % (1-7); LYMPHOCYTES # (AUTO) 2.02 x10^3/uL (1-3.4); LYMPHOCYTES % (AUTO) 32 % (22-44); MD NO; MEAN CORPUSCULAR HEMOGLOBIN 29.2 pg (27.5-34.5); MEAN CORPUSCULAR HGB CONC 33.9 g/dL (33.2-36.2); MEAN CORPUSCULAR VOLUME 86.1 fL (81-97); MEAN PLATELET VOLUME 9.1 fL (7.4-10.4); MONOCYTES % (AUTO) 8 % (2-9); NEUTROPHILS # (AUTO) 3.59 x10^3/uL (1.8-6.8); NEUTROPHILS % (AUTO) 58 % (42-75); PLATELET COUNT 208 x10^3/uL (130-400); RED BLOOD COUNT 5.31 x10^6/uL (4.38-5.82); RED CELL DISTRIBUTION WIDTH 13.9 % (9.4-14.8)
[2019-04-28] MEDS ORDERED: KETOROLAC 30 MG/1 ML IM ONE (00:30)
[2019-04-28 00:32] LABS: ALANINE AMINOTRANSFERASE 19 U/L (12-78); ALBUMIN 3.9 g/dL (3.4-5.0); ANION GAP 6 mmol/L (5-15); CALCIUM 8.8 mg/dL (8.5-10.1); CHLORIDE 112 mmol/L (98-107)
[2019-04-28 00:35] LABS: ALKALINE PHOSPHATASE 94 U/L (45-117); BILIRUBIN,TOTAL 0.3 mg/dL (0.2-1.0); TOTAL PROTEIN 7.3 g/dL (6.4-8.2)
[2019-04-28] MEDS ORDERED: KETOROLAC 60 MG/2 ML ONE (00:45)
--- NOTE | 2019-04-28 00:50 | NUR ---
PT RESTING ON GURNEY, MEDICATED PER APR. CALL LIGHT WITHIN REACH. FRIENDS AT FOR SUPPORT.
[2019-04-28 01:23] VITALS: BP 115/74
== END 2019-04-28 01:32 | disposition home or self-care (01) ==
LOC: ED 04-28 00:07
DX: R10.32 Left lower quadrant pain (principal); J45.909 Unspecified asthma, uncomplicated; F17.200 Nicotine dependence, unspecified, uncomplicated; W18.2XXA Fall in (into) shower or empty bathtub, initial encounter; Y93.89 Activity, other specified; Y92.89 Other specified places as the place of occurrence of the external cause; Y99.8 Other external cause status
CPT/HCPCS: 36415; 72170; 80053; 83690; 85025; 96372; 99284; J1885

== ENCOUNTER 2019-05-07 01:28 | Emergency (ER) | payer OTHER ==
[~2019-05-07] VITALS: Ht 172.7 cm; Wt 68.2 kg
[2019-05-07] MEDS ORDERED: DIPHENHYDRAMINE 50 MG/ML, 1ML IVPush ONE (02:00)
[2019-05-07] MEDS ORDERED: PROCHLORPERAZINE 5 MG/ML, 2ML IVPush ONE (02:00)
[2019-05-07] MEDS ORDERED: KETOROLAC 30 MG/1 ML IVPush ONE (02:00)
[2019-05-07] MEDS ORDERED: KETOROLAC 30 MG/1 ML ONE (03:01)
[2019-05-07] MEDS ORDERED: DIPHENHYDRAMINE 50 MG/ML, 1ML ONE (03:01)
[2019-05-07] MEDS ORDERED: PROCHLORPERAZINE 5 MG/ML, 2ML ONE (03:01)
--- NOTE | 2019-05-07 03:24 | NUR ---
PT C/O ANXIETY RELATED TO MEDICATION ADMINISTRATION. NOTIFIED. COACHED PT TO SLOW BREATHING. FRIENDS AT BEDSIDE FOR SUPPORT. MONITOR IN PLACE. VITAL WNL.
[2019-05-07 04:10] VITALS: BP 100/59
== END 2019-05-07 04:48 | disposition home or self-care (01) ==
LOC: ED 02:00
DX: G43.009 Migraine without aura, not intractable, without status migrainosus (principal); J45.909 Unspecified asthma, uncomplicated; F17.200 Nicotine dependence, unspecified, uncomplicated
CPT/HCPCS: 96374; 96375; 99284; J0780; J1200; J1885

== ENCOUNTER 2019-08-24 17:42 | Emergency (ER) | payer OTHER ==
[~2019-08-24] VITALS: Ht 172.7 cm; Wt 61.0 kg
[2019-08-24 17:45] VITALS: BP 108/69
[2019-08-24] MEDS ORDERED: PROCHLORPERAZINE 5 MG/ML, 2ML IVPush ONE (18:00)
[2019-08-24] MEDS ORDERED: SODIUM CHLORIDE 0.9% 1,000ML IVBOLUS ONE (18:00)
[2019-08-24] MEDS ORDERED: KETOROLAC 30 MG/1 ML IVPush ONE (18:00)
[2019-08-24] MEDS ORDERED: MORPHINE SULFATE 4 MG/ML, 1ML IVPush PRN (18:00)
[2019-08-24] MEDS ORDERED: SODIUM CHLORIDE FLUSH 10ML SYR IVF ONE (18:00)
[2019-08-24] MEDS ORDERED: PROCHLORPERAZINE 5 MG/ML, 2ML ONE (18:04)
[2019-08-24] MEDS ORDERED: KETOROLAC 30 MG/1 ML ONE (18:04)
[2019-08-24] MEDS ORDERED: ONDANSETRON 2MG/ML, 2ML ONE (18:10)
--- NOTE | 2019-08-24 18:14 | NUR ---
PT WALED BACK FROM TRIAGE WITH CHIEF COMPLAINT OF WHOLE BODAY PAIN, INTERMITTENT NAUSEA SINCE 2 AM. DENIES OTHER SYMPTOMS.
[2019-08-24] MEDS ORDERED: LIDOCAINE-MPF 1%, 5ML ONE (18:29)
[2019-08-24] MEDS ORDERED: ONDANSETRON 2MG/ML, 2ML IVPush ONE (18:30)
[2019-08-24] MEDS ORDERED: LIDOCAINE 1%, 10ML INFIL ONE (18:30)
--- NOTE | 2019-08-24 18:37 | NUR ---
PT STATED HE NEEDED TO "TAKE CARE OF STUFF AT HOME." PIV REMOVED AND PT LEFT AMA, PAPERWORK SIGNED
--- NOTE | 2019-08-24 18:38 | NUR ---
ERMD SAMMIE AWARE
== END 2019-08-24 18:45 | disposition left against medical advice (07) ==
LOC: ED 18:30
DX: G43.C0 Periodic headache syndromes in child or adult, not intractable (principal); M54.2 Cervicalgia; R11.0 Nausea; R50.9 Fever, unspecified; J45.909 Unspecified asthma, uncomplicated; F17.200 Nicotine dependence, unspecified, uncomplicated; Z72.9 Problem related to lifestyle, unspecified
CPT/HCPCS: 96374; 96375; 99284; J1885; J2405; J7030

== ENCOUNTER 2019-09-13 07:01 | Emergency (ER) | payer OTHER ==
[~2019-09-13] VITALS: Ht 172.7 cm; Wt 63.8 kg
[2019-09-13] MEDS ORDERED: MORPHINE SULFATE 4 MG/ML, 1ML IVPush ONE ×2 (07:30→11:30)
[2019-09-13] MEDS ORDERED: ONDANSETRON 2MG/ML, 2ML IVPush ONE ×2 (07:30→11:30)
[2019-09-13] MEDS ORDERED: PEDS NS BOLUS IV.SOLN 20ML/KG IVBOLUS ONE (07:30)
[2019-09-13] MEDS ORDERED: MORPHINE SULFATE 4 MG/ML, 1ML ONE (07:46)
[2019-09-13] MEDS ORDERED: ONDANSETRON 2MG/ML, 2ML ONE ×2 (07:46→11:26)
--- NOTE | 2019-09-13 08:00 | NUR ---
PT LAYING ON GURNEY WITH EYES CLOSED, RESPONDS APPROP TO STAFF, COMFORT MEASURES PROVIDED, CALL LIGHT WITHIN REACH.
[2019-09-13 08:02] LABS: MEAN CORPUSCULAR HEMOGLOBIN 28.5 pg (27.5-34.5); MEAN CORPUSCULAR HGB CONC 32.8 g/dL (33.2-36.2); MEAN PLATELET VOLUME 9.1 fL (7.4-10.4); PLATELET COUNT 229 x10^3/uL (130-400); RED BLOOD COUNT 5.33 x10^6/uL (4.38-5.82); RED CELL DISTRIBUTION WIDTH 13.9 % (9.4-14.8)
[2019-09-13 08:13] LABS: ALANINE AMINOTRANSFERASE 20 U/L (12-78); ALBUMIN 3.8 g/dL (3.4-5.0); ANION GAP 4 mmol/L (5-15); CALCIUM 8.3 mg/dL (8.5-10.1); CHLORIDE 114 mmol/L (98-107); CREATININE 0.98 mg/dL (0.7-1.3)
[2019-09-13 08:15] LABS: ALKALINE PHOSPHATASE 86 U/L (45-117); BILIRUBIN,TOTAL 0.4 mg/dL (0.2-1.0); TOTAL PROTEIN 6.8 g/dL (6.4-8.2)
[2019-09-13 08:22] LABS: BASOPHILS % (AUTO) 0 % (0-1); EOSINOPHILS # (AUTO) 0.08 x10^3/uL (0-0.4); EOSINOPHILS % (AUTO) 1 % (1-7); LYMPHOCYTES # (AUTO) 1.04 x10^3/uL (1-3.4); LYMPHOCYTES % (AUTO) 8 % (22-44); MD SCAN; MONOCYTES % (AUTO) 2 % (2-9); NEUTROPHILS % (AUTO) 90 % (42-75)
[2019-09-13] MEDS ORDERED: SODIUM CHLORIDE 0.9% 1,000ML IVBOLUS ONE ×2 (09:00→12:00)
--- NOTE | 2019-09-13 09:02 | NUR ---
PT LAYING ON GURNEY WITH EYES CLOSED, ABLE TO DOZE OFF, REPORTS PAIN/NAUSEA MEDS HELPFUL, RESPONDS APPROP TO STAFF, NAD, COMFORT MEASURES PROVIDED, CALL LIGHT WITHIN REACH.
--- NOTE | 2019-09-13 10:01 | NUR ---
PT CONTINUES LAYING ON GURNEY WITH EYES CLOSED, RESPONDS APPROP TO STAFF, NAD, NO NEEDS AT THIS TIME, CALL LIGHT WITHIN REACH.
[2019-09-13 12:21] VITALS: BP 87/47
== END 2019-09-13 13:09 | disposition home or self-care (01) ==
LOC: ED 09:47
DX: G89.29 Other chronic pain (principal); R10.13 Epigastric pain; I95.89 Other hypotension; R42 Dizziness and giddiness; R11.0 Nausea; R51 Headache; F17.210 Nicotine dependence, cigarettes, uncomplicated
CPT/HCPCS: 36415; 80053; 82533; 83690; 85025; 96361; 96374; 96375; 96376; 99285; J2270; J2405; J7030

== ENCOUNTER 2020-02-01 06:32 | Emergency (ER) | payer OTHER ==
[~2020-02-01] VITALS: Ht 172.7 cm; Wt 63.0 kg
[2020-02-01] MEDS ORDERED: SODIUM CHLORIDE FLUSH 10ML SYR IVF ONE (07:30)
[2020-02-01] MEDS ORDERED: SODIUM CHLORIDE 0.9% 1,000ML IVBOLUS ONE (07:30)
[2020-02-01] MEDS ORDERED: FAMOTIDINE 20 MG/2 ML IVPush ONE (07:30)
[2020-02-01] MEDS ORDERED: PROMETHAZINE 25 MG/ML, 1ML IM ONE (07:30)
[2020-02-01] MEDS ORDERED: PROMETHAZINE 25 MG/ML, 1ML ONE (07:31)
[2020-02-01] MEDS ORDERED: FAMOTIDINE 20 MG/2 ML ONE (07:32)
[2020-02-01] MEDS ORDERED: ONDANSETRON 2MG/ML, 2ML ONE (07:37)
--- NOTE | 2020-02-01 07:46 | NUR ---
PT HAS CO NAUSEA/V/D STARTED TODAY. DENIES CP OR SOB PIV, MEDICATED PER ORDERS
[2020-02-01] MEDS ORDERED: ONDANSETRON 2MG/ML, 2ML IVPush ONE (08:00)
[2020-02-01 08:03] LABS: BASOPHILS % (AUTO) 0 % (0-1); EOSINOPHILS % (AUTO) 1 % (1-7); LYMPHOCYTES % (AUTO) 8 % (22-44); MEAN CORPUSCULAR HEMOGLOBIN 29.8 pg (27.5-34.5); MEAN CORPUSCULAR HGB CONC 34.2 g/dL (33.2-36.2); MONOCYTES % (AUTO) 4 % (2-9); NEUTROPHILS % (AUTO) 87 % (42-75); PLATELET COUNT 243 x10^3/uL (130-400); RED CELL DISTRIBUTION WIDTH 13.4 % (9.4-14.8)
[2020-02-01 08:11] LABS: MD NO
[2020-02-01 08:12] LABS: ALANINE AMINOTRANSFERASE 14 U/L (12-78); ALBUMIN 4.3 g/dL (3.4-5.0); ANION GAP 5 mmol/L (5-15); CALCIUM 8.9 mg/dL (8.5-10.1); CHLORIDE 112 mmol/L (98-107); CREATININE 0.95 mg/dL (0.7-1.3)
[2020-02-01 08:14] LABS: ALKALINE PHOSPHATASE 109 U/L (45-117); BILIRUBIN,TOTAL 0.5 mg/dL (0.2-1.0); TOTAL PROTEIN 8.1 g/dL (6.4-8.2)
[2020-02-01 09:17] VITALS: BP 118/80
== END 2020-02-01 09:22 | disposition home or self-care (01) ==
LOC: ED 06:38
DX: K52.9 Noninfective gastroenteritis and colitis, unspecified (principal); L03.116 Cellulitis of left lower limb; G43.909 Migraine, unspecified, not intractable, without status migrainosus; J45.909 Unspecified asthma, uncomplicated; F17.290 Nicotine dependence, other tobacco product, uncomplicated
CPT/HCPCS: 36415; 80053; 83690; 85025; 96361; 96374; 96375; 99284; J2405; J7030

== ENCOUNTER 2020-02-03 01:19 | Emergency (ER) | payer OTHER ==
[~2020-02-03] VITALS: Ht 172.7 cm; Wt 65.0 kg
[2020-02-03 01:25] VITALS: BP 119/75
--- NOTE | 2020-02-03 02:22 | NUR ---
CALLED FOR PT. PT NOT IN LOBBY OR RESTROOMS.
--- NOTE | 2020-02-03 02:42 | NUR ---
CALLED FOR PT. PT NOT IN LOBBY OR IN RESTROOMS.
--- NOTE | 2020-02-03 02:58 | NUR ---
CALLED FOR PT. PT NOT IN LOBBY OR IN RESTROOMS.
== END 2020-02-03 03:01 | disposition left against medical advice (07) ==
LOC: ED 01:39
DX: R10.9 Unspecified abdominal pain (principal); R11.2 Nausea with vomiting, unspecified; Z53.21 Procedure and treatment not carried out due to patient leaving prior to being seen by health care provider

== ENCOUNTER 2020-02-09 12:39 | Emergency (ER) | payer OTHER ==
[~2020-02-09] VITALS: Ht 172.7 cm; Wt 55.0 kg
[2020-02-09] MEDS ORDERED: MORPHINE SULFATE 4 MG/ML, 1ML ONE ×2 (13:48→14:57)
[2020-02-09] MEDS ORDERED: ONDANSETRON 2MG/ML, 2ML ONE ×2 (13:48→15:50)
[2020-02-09] MEDS: MORPHINE SULFATE 4 MG/ML, 1ML IVPush PRN ×2 (13:51→15:01)
--- NOTE | 2020-02-09 13:56 | NUR ---
PT HAS CO ABDOMINAL PAIN W N/V STARTING LAST NIGHT. ABDOMEN RIGID. MD AQUINO AT BEDSIDE FOR ASSESSMENT IV, IVF, MEDICATD FOR PAIN AND NAUSEA.
[2020-02-09] MEDS ORDERED: ONDANSETRON 2MG/ML, 2ML IVPush ONE ×2 (14:00→16:00)
[2020-02-09] MEDS ORDERED: SODIUM CHLORIDE FLUSH 10ML SYR IVF ONE (14:00)
[2020-02-09] MEDS ORDERED: SODIUM CHLORIDE 0.9% 1,000ML IVBOLUS ONE ×2 (14:00→15:00)
[2020-02-09 14:16] LABS: BASOPHILS % (AUTO) 0 % (0-1); EOSINOPHILS % (AUTO) 1 % (1-7); LYMPHOCYTES % (AUTO) 8 % (22-44); MEAN CORPUSCULAR HEMOGLOBIN 29.2 pg (27.5-34.5); MEAN CORPUSCULAR HGB CONC 33.4 g/dL (33.2-36.2); MEAN PLATELET VOLUME 8.8 fL (7.4-10.4); MONOCYTES % (AUTO) 4 % (2-9); NEUTROPHILS % (AUTO) 87 % (42-75); PLATELET COUNT 271 x10^3/uL (130-400); RED BLOOD COUNT 6.02 x10^6/uL (4.38-5.82); RED CELL DISTRIBUTION WIDTH 13.5 % (9.4-14.8)
[2020-02-09 14:19] LABS: MD NO
[2020-02-09 14:21] LABS: ALANINE AMINOTRANSFERASE 20 U/L (12-78); ALBUMIN 4.2 g/dL (3.4-5.0); ANION GAP 6 mmol/L (5-15); CALCIUM 9.5 mg/dL (8.5-10.1); CHLORIDE 115 mmol/L (98-107); CREATININE 0.92 mg/dL (0.7-1.3)
[2020-02-09 14:23] LABS: ALKALINE PHOSPHATASE 107 U/L (45-117); BILIRUBIN,TOTAL 0.3 mg/dL (0.2-1.0); TOTAL PROTEIN 7.8 g/dL (6.4-8.2)
--- NOTE | 2020-02-09 14:40 | NUR ---
PT ALLERGY TO CONTRAST, HIVES. CT TO BE DONE W OUT CONTRAST.
--- NOTE | 2020-02-09 16:04 | NUR ---
PT RESTING MORE COMFORTABLE. PLAYING ON PHONE
--- NOTE | 2020-02-09 17:30 | NUR ---
PT WISHES TO LEAVE. AWARE. OK FOR DC
--- NOTE | 2020-02-09 17:37 | NUR ---
Patient/Caregiver given discharge instructions and they have confirmed that they understand the instructions. Patient ambulatory with steady gait.
[2020-02-09 17:38] VITALS: BP 114/82
== END 2020-02-09 17:39 | disposition home or self-care (01) ==
LOC: ED 12:43
DX: K52.9 Noninfective gastroenteritis and colitis, unspecified (principal); R10.31 Right lower quadrant pain; J45.909 Unspecified asthma, uncomplicated; G43.909 Migraine, unspecified, not intractable, without status migrainosus; F17.200 Nicotine dependence, unspecified, uncomplicated
CPT/HCPCS: 36415; 74176; 80053; 83605; 83690; 85025; 87040; 96361; 96374; 96375; 96376; 99284; J2270; J2405; J7030